=== PATIENT | male | born 1995 | race Caucasian/White ===

== ENCOUNTER 2020-12-14 14:31 | Emergency (ER) | payer OTHER, SELFPAY ==
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
--- NOTE | ~2020-12-14 | XR_ITS ---
EXAMINATION: XR foot RT min 3V DATE: 12/14/2020 17:01 INDICATION: Right foot bruising posterior oblique extend TECHNIQUE: Dorsoplantar, two oblique and lateral views of the right foot were obtained. COMPARISON: None. FINDINGS: Alignment is normal. No fracture. Joint spaces are normal. Prominent soft tissue swelling about the r ight ankle, mid and hindfoot. IMPRESSION: 1. No osseous abnormality. Reviewed, dictated and finalized at location A. IMPRESSION: 1. No osseous abnormality.
[2020-12-14 14:35] VITALS: BP 157/105; PULSE 108; RESP 18; TEMP 36.6; O2SAT 100
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
[2020-12-14] MEDS: IBUPROFEN 400 MG TABLET 800 MG PO (17:13)
[2020-12-14 17:43] VITALS: TEMP 36.6
[2020-12-14 17:56] VITALS: BP 142/94; PULSE 92; RESP 18; O2SAT 99
== END 2020-12-14 17:57 | disposition home or self-care (01) ==
PROVIDERS: Emergency Provider Nurse Practitioner
DX: S96.911A Strain of unspecified muscle and tendon at ankle and foot level, right foot, initial encounter (principal); S90.31XA Contusion of right foot, initial encounter; V86.56XA Driver of dirt bike or motor/cross bike injured in nontraffic accident, initial encounter
CPT/HCPCS: 73610; 73630; 99283; A9270